=== PATIENT | male | born 1995 | race Caucasian/White ===

== ENCOUNTER → 2017-04-14 | Outpatient (CLI) | payer BC ==
[~2017-04-14] MED LIST: HYDR0.5T PO
--- NOTE | 2017-04-14 14:16 | DIAGNOSTIC IMAGING REPORT ---
CHEST 1 VW FRONT-NOT PORTABLE CLINICAL HISTORY: 22 years-old Male presenting with Z11.1 +PPD now posttreatment. TECHNIQUE: PA view of the chest was obtained. COMPARISON: None. FINDINGS: Cardiomediastinal silhouette normal. Lungs and pleural spaces clear. Osseous structures normal. Upper abdomen normal. IMPRESSION: 1. No acute cardiopulmonary disease. Electronically signed by: Santi Escalera M.D. 04/14/2017 2:15 PM Dictated Date/Time: 04/14/2017 2:14 PM
== END | disposition home or self-care (01) ==
LOC: C.RAD1850 14:08
PROVIDERS: ATTEND Family Medicine
DX: Z11.1 Encounter for screening for respiratory tuberculosis (principal)